=== PATIENT | male | born 1970 | race Caucasian/White ===

== ENCOUNTER 2022-09-29 17:07 | Outpatient (REF) | payer SELFPAY ==
[2022-09-29 14:39] LABS: BUN 19 mg/dL (7-18); CREATININE 0.9 mg/dL (0.70-1.30); Calcium 9.8 mg/dL (8.5-10.1); Calculated LDL 112 mg/dL (<100); Chloride 105 mmol/L (98-107); Cholesterol 178 mg/dL (<200); Glucose 107 mg/dL (74-106); HDL Cholesterol 57 mg/dL (40-60); Potassium 5.8 mmol/L (3.5-5.1); Sodium 143 mmol/L (136-145); Triglyceride 46 mg/dL (<150)
== END 2022-09-29 17:08 | disposition home or self-care (01) ==
LOC: NCHCN 17:07
PROVIDERS: Visit Provider Family Medicine
DX: Z00.00 Encounter for general adult medical examination without abnormal findings (principal)
CPT/HCPCS: 80048; 80061

== ENCOUNTER 2025-04-26 20:05 | Emergency (ER) | payer MEDICAID, SELFPAY ==
[2025-04-26 20:08] VITALS: BP 150/91; PULSE 69; RESP 18; O2SAT 99
--- NOTE | 2025-04-26 20:14 | W.ED.GENAD ---
Discharge Plan Disposition Patient Disposition: Home Discharge Details Clinical Impression: Lower back pain Primary Care Provider: Unknown,Unknown ED Provider: Rowan Castillo Home Meds and New Rx's Prescriptions: New methocarbamol 750 mg tablet 750 mg PO Q8H PRNQty: 14 0RF Rx Instructions: Take 1-2 tablets by mouth every 8 hours as needed for muscle spasm. Discharge Instructions Additional Instructions: Please call your primary care provider first thing Monday morning to schedule follow-up appointment. I recommend discussing PT for management/treatment of lower back pain I am prescribing you Robaxin, a muscle relaxer to help with muscle spasms. Please note that this may make you sleepy. Be careful when operating heavy machinery or driving. You may wish to take this medication only at night. I encourage you to use Tylenol 1000 mg combined with ibuprofen 600 mg every 6-8 hours [id number] during the day (no more than 3 times a day). Lidocaine patches, heat/ice (not to be used over lidocaine patches), and gentle massage/stretching may also be helpful. Return to emergency care if you develop fevers associated with back pain, numbness in your underwear area, change in bowel/bladder function (inability to empty bladder, loss of bladder/bowel control), leg weakness or numbness, or if you are very worried and need to be rechecked again immediately. Referrals: [facility] [Provider Group] HPI General Date/Time Provider Initiated Documentation: 04/26/25 20:06. HPI Narrative: Moises is a 54-year-old male who presents to the emergency department today for evaluation of lower back pain. 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 Ulen pain after working outside, but pain intensified overnight, disrupting sleep, and worsened upon waking today. Describes pain as a persistent cramp to mid/lower back, similar to a charley horse. First encounter with such intense pain, believes it is due to muscle strain. Pain localized in the middle of the back, worsens with bending or twisting. Denies associated fevers, chills, changes in bowel or bladder function, dysuria, hematuria, saddle anesthesia, or leg weakness/numbness. Feels generally weak due to prolonged pain. Managing pain with ibuprofen, three tablets in the morning and another three around 1530 hours, as well as lidocaine patches and heat/ice. Denies history of heart problems, HTN, HLD, diabetes, lung disease, alcohol use, tobacco use. PCP at [facility]. Related Data Home Medications ?Medication ?Instructions ?Recorded ?Confirmed methocarbamol 750 mg tablet 750 mg PO Q8H PRN #14 tabs 04/26/25 Previous Rx's ?Medication ?Instructions ?Recorded methocarbamol 750 mg tablet 750 mg PO Q8H PRN #14 tabs 04/26/25 Allergies Allergy/AdvReac Type Severity Reaction Status Date / Time No Known Allergies Allergy Unverified 04/26/25 20:13 General Stated Complaint: Nk/Back Pain GELACIO: 3 Exam Narrative Exam Narrative: General Appearance: Normal. Patient appears uncomfortable, especially with movement Vital signs: Hypertension noted, no tachycardia. Respiratory: Easy work of breathing, able to speak in full sentences Gastrointestinal: Abdomen soft, non-tender, no pulsatile masses palpated. Back, Musculoskeletal: No C-spine/T-spine/L-spine step-off/point tenderness/deformity. No obvious muscle spasm. 5/5 muscle strength upper and lower extremities. Sensation grossly intact. Achilles reflexes 2+ bilaterally. Temperature and leg color equal bilaterally. No CVA tenderness Neurological: Reflexes intact. Skin: Warm and dry, no rash. Psychiatric: Normal. Course Vital Signs Vital signs: Vital Signs Pulse 69 04/26/25 20:08 Respiratory Rate 18 04/26/25 20:08 Blood Pressure 150/91 H 04/26/25 20:08 Pulse Oximetry 99 04/26/25 20:08 Pulse 69 04/26/25 20:08 Respiratory Rate 18 04/26/25 20:08 Blood Pressure 150/91 H 04/26/25 20:08 Pulse Oximetry 99 04/26/25 20:08 Oxygen Delivery Method Room Air 04/26/25 20:08 Oxygen Flow Rate 0 04/26/25 20:08 Pain Level 5 04/26/25 20:08 Medical Decision Making Initial Assessment: 54-year-old male with back pain likely due to muscle strain from heavy physical activity. No fever, chills, changes in bowel or bladder function, or leg numbness/weakness. Pain localized to the middle of the back, worsens with bending or twisting. History and presentation was consistent with muscular back pain. No red flags in history/risk factors or physical exam concerning for trauma/fracture, AAA, spinal epidural abscess, cauda equina/compressive cord syndromes, or other serious etiology requiring diagnostic imaging or labs at this time. ED Course: - Applied lidocaine patch. - Administered Tylenol and Toradol IM, as well as Robaxin for home use (as pt is driving himself) Final Assessment: Back pain likely due to muscle strain. Administered lidocaine patch and Tylenol. Advised ibuprofen and Tylenol regimen, follow-up with primary care, and referral to physical therapy. Clinical Impression: - Muscle strain Disposition: - Discharge: Home, pain management and follow-up instructions provided. Reviewed red flags indicating need for return to emergency care. He voices agreement w/ plan of care. Prescription provided for Robaxin for home use. - Follow-Up: Contact primary care provider at [facility] on 04/28/2025. Referral to physical therapy. Patient Education: Advised on the use of ibuprofen and Tylenol together. Educated on signs to watch for requiring immediate medical attention, such as fevers, numbness, weakness in legs, numbness in the underwear area, difficulty urinating, or accidents. Patient consented to the use of JENNIFER PFSH All Active Problems (Updated 04/26/25 @ 20:38 by Rowan Gurrola) Lower back pain (Acute) Social History Smoking/Tobacco Use Status: Never Smoking risk assessment performed?: Yes Alcohol Intake: former Substance use type: does not use Housing: house
[2025-04-26] MEDS: Acetaminophen 500 MG TAB 1000 MG PO (20:39)
[2025-04-26] MEDS: Ketorolac 30 MG/ML VIAL IM (20:39)
[2025-04-26] MEDS: Lidocaine 5% Patch 1 PATCH TP (20:41)
[2025-04-26] MEDS: Methocarbamol 750 MG TAB 1500 MG PO (21:00)
[2025-04-26 21:02] VITALS: BP 130/77; PULSE 61; RESP 18; O2SAT 95
== END 2025-04-26 21:02 | disposition home or self-care (01) ==
PROVIDERS: Emergency Provider Nurse Practitioner Family; PCP Family Medicine
DX: M54.6 Pain in thoracic spine (principal); M54.50 Low back pain, unspecified
CPT/HCPCS: 96372; 99283; J1885

== ENCOUNTER 2025-06-13 13:43 | Emergency (ER) | payer MEDICAID, SELFPAY ==
[2025-06-13 13:51] VITALS: BP 130/85; PULSE 68; RESP 12; TEMP 37; O2SAT 96
--- NOTE | 2025-06-13 14:15 | DI.MRI_ITS ---
Exam(s) MR BRAIN WO EXAM: MR BRAIN WO CLINICAL HISTORY: Sudden vision loss right eye, rule out stroke TECHNIQUE: Multiplanar multisequence MRI of the brain was performed. COMPARISON: No exams were available for comparison FINDINGS: The examination is limited due to patient motion artifact. VENTRICLES AND EXTRA AXIAL SPACES: Normal in size and morphology for the patient's age. MIDLINE SHIFT: None. CEREBRAL PARENCHYMA: No focus of restricted diffusion to suggest acute infarct. No space-occupying lesion identified. HEMORRHAGE: None. BRAINSTEM/CEREBELLUM: Normal. CALVARIUM: Normal. VISUALIZED PARANASAL SINUSES/MASTOIDS:There is mucosal thickening in the maxillary sinuses, left greater than right. There is opacification of several ethmoid air cells. The mastoid air cells are clear. [place]: Normal flow void. PITUITARY GLAND: Unremarkable. OTHER FINDINGS: None. IMPRESSION: 1. No evidence of an acute infarct. 2. Mild sinus disease. DATA REPOSITORY:
--- NOTE | 2025-06-13 14:30 | DI.CT_ITS ---
Exam(s) CT BRAIN NECK CTA EXAM: CT BRAIN NECK CTA CLINICAL HISTORY: Right painless vision loss of the right eye. TECHNIQUE: Imaging Protocol: Axial CT angiography was performed with multi- slice acquisition and multi-planar and/or 3D reconstructions. CONTRAST MATERIAL: Intravenous: Omnipaque 350 contrast volume:70 mL COMPARISON: MR MR BRAIN WO from 06/13/2025 FINDINGS: CT Head W/O and W: Ventricles and Extra axial spaces: Normal in size and morphology for the patient's age. Hemorrhage: None. Cerebral parenchyma: Normal. Midline shift: None. Brainstem/Cerebellum: Normal. Pituitary gland: The pituitary gland, infundibulum and optic chiasm are unremarkable. Calvarium: Normal. Visualized Paranasal sinuses/Mastoids: There is mild mucosal thickening in the visualized paranasal sinuses. The mastoid air cells are clear. Soft Tissues: Unremarkable. Enhancement: Unremarkable. CTA Neck W: Common Carotid: Right: No dissection, occlusion or significant stenosis. Left: No dissection, occlusion or significant stenosis. External Carotid: Right: No occlusion or significant stenosis. Left: No occlusion or significant stenosis. Internal Carotid: Right: No dissection, occlusion or significant stenosis. Left: No dissection, occlusion or significant stenosis. Vertebral Artery: Right: No dissection, occlusion or significant stenosis. Left: No dissection, occlusion or significant stenosis. Lung Apices: Normal. Bones: Within normal limits for the patient's age. Soft Tissues: Normal. Thyroid gland: The left thyroid lobe is small or absent. Orbits: The orbits and retro-orbital soft tissues are unremarkable. CTA Brain W: Internal Carotid Arteries: There is no evidence of an aneurysm, occlusion or significant stenosis. Anterior Cerebral Arteries: Right: No aneurysm, occlusion or significant stenosis. Left: No aneurysm, occlusion or significant stenosis. Middle Cerebral Arteries: Right: No aneurysm, occlusion or significant stenosis. Left: No aneurysm, occlusion or significant stenosis. Posterior Cerebral Arteries: Right: No aneurysm, occlusion or significant stenosis. Left: No aneurysm, occlusion or significant stenosis. Vertebral Arteries: Right: No aneurysm, occlusion or significant stenosis. Left: No aneurysm, occlusion or significant stenosis. Basilar Artery: No aneurysm, occlusion or significant stenosis. IMPRESSION: 1. No large vessel occlusion or significant stenosis on the CT angiography of the head. 2. No acute intracranial process. 3. No occlusion or significant stenosis on the CT angiography of the neck. RADIATION DOSE DELIVERED: 2,563.52mGy.cm Total DLP DATA REPOSITORY: All CT scans at this facility are submitted to the National Radiology Data Registry (NRDR) Dose Index Registry (DIR) with the [employer] (ACR). RADIATION OPTIMIZATION: All CT scans at this facility use at least one of these dose optimization techniques: automated exposure control; mA and/or kV adjustment per patient size (includes targeted exams where dose is matched to clinical indication); or iterative reconstruction.
--- NOTE | 2025-06-13 14:35 | W.ED.GENAD ---
Discharge Plan Disposition Patient Disposition: Home Condition: Good Discharge Details Clinical Impression: Transient visual loss of right eye Primary Care Provider: Jonh Del Rio ED Provider: Nacho Dewey Home Meds and New Rx's Prescriptions: No Action No Known Home Meds Discharge Instructions Additional Instructions: At this time your workup shows no evidence of stroke on your MRI, no signs of large clot or severe vascular disease in your head or neck or eye. Your symptoms may have been secondary to a small clot or plaque that traveled to the arteries of your eye and caused a transient vision loss. There is also a chance that it could have been an atypical floater that brought about this vision change. Regardless, the assumption must be for the more severe scenario. 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 Please follow-up with your primary care provider to discuss further outpatient workup including echocardiogram, potential statin/cholesterol therapy. If you notice any worsening of your symptoms, or any new symptoms such as vomiting, diarrhea, fever, chills, shortness of breath, chest pain, numbness, weakness, or fainting , please return immediately to the emergency department for reevaluation. Please follow up with your primary care provider as soon as possible for reassessment and reevaluation. As always, it was a pleasure participating in your medical care today. Referrals: [facility] [Outside] Jonh Del Rio MD [Primary Care Provider, Medicine] [facility] General Date/Time Provider Initiated Documentation: 06/13/25 14:01. [facility] Narrative: This is a 54-year-old male with no significant past medical history who presents today for evaluation of sudden onset vision change. Patient states that he was eating lunch at about 1230 when he noticed a solid strickland box extending from the bottom of his vision and go all the way up stopping at the midway point. It took about 45 seconds to go from the bottom to the top. It then lasted 1 minute, and then resolved in about 45 seconds after that by slowly going back down. There was a minimal amount of achiness in the right eye, but otherwise no significant pain. There was no vision component whatsoever when that strickland box was present. He was not able to see through it at all. There was no black curtain coming down from his vision. He denies any speckles or thunder and lightening for visual changes. He does admit to a very mild achiness in his head, but no other complaint or component. He denies any falls or trauma. He denies ever having an experience like this before. No personal history of stroke or IN. He does have a family history of glaucoma macular degeneration and potential arterial vascular disease. Patient does not smoke. No other complaints at this time. At this time he states that his vision has completely resolved, and he feels otherwise well. Related Data Home Medications ?Medication ?Instructions ?Recorded ?Confirmed Unknown [No Known Home Meds] 06/13/25 06/13/25 Allergies Allergy/AdvReac Type Severity Reaction Status Date / Time No Known Allergies Allergy Verified 06/13/25 13:52 General Stated Complaint: EyeProblem GELACIO: 3 Exam Narrative Exam Narrative: 1.Const: Well-nourished, Well-developed, appearing stated age 2.Eyes: PERRL, no conjunctival injection, and symmetrical lids. Right eye: EOMI, PERRL, Peripheral vision intact. No nystagmus. Fundoscopic exam shows normal optic discs and normal vasculature from my perspective, there is a slight darker spot at the 7 o'clock position but no other significant abnormality. No clinical signs of septal/orbital cellulitis, no redness around the eye, no proptosis. No hyphema, no signs of trauma around the eye, no periorbital emphysema. No sluggishness of the pupil. No ophthalmoplegia. No afferent pupillary defect. Fluorescein exam is negative for corneal abrasion, negative Marry sign. Visual acuity as documented in chart. Intraocular pressure registers at 16 on multiple measurements. 3.ENT: Atraumatic external nose and ears. Moist MM. Neck: Symmetric, trachea midline, No thyromegaly. 4.CVS: +S1/S2, Peripheral pulses 2+ and equal in all extremities. Brisk capillary refill in all extremities. 5.RESP: Unlabored respiratory effort. Clear to auscultation bilaterally. No wheezes rales or rhonchi 6.GI: Soft, Nontender/Nondistended, No hepatosplenomegaly. No guarding or rebound. 7.MSK: Normocephalic/Atraumatic, Extremities w/o deformity or ttp No cyanosis or clubbing, Normal movement of all extremities 8.Skin: Warm, Dry. No rashes or lesions. 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 Sensation grossly intact, no focal neurologic deficits. All 6 cardinal planes of vision are fully intact. No evidence of rotatory or vertical nystagmus. The patient demonstrated a normal [id number]-zaytpt, good dexterity. There was no evidence of dysdiadochokinesia. Patient was able to ambulate without difficulty. There was no wide-based gait. Romberg testing was normal. [id number] testing was normal. Sensation was intact bilaterally as well as muscle strength bilaterally for all extremities. Patient was able to verbalize butter cup with no slurring, or miss pronunciation. 10.Psych: (AAO) x3. Appropriate mood and affect Course Vital Signs Vital signs: Vital Signs Temperature 37.0 C 06/13/25 13:51 Pulse 68 06/13/25 13:51 Respiratory Rate 12 06/13/25 13:51 Blood Pressure 130/85 06/13/25 13:51 Pulse Oximetry 96 06/13/25 13:51 Temperature 37.0 C 06/13/25 13:51 Temperature Source Oral 06/13/25 13:51 Pulse 68 06/13/25 13:51 Respiratory Rate 12 06/13/25 13:51 Blood Pressure 130/85 06/13/25 13:51 Blood Pressure Position Sitting 06/13/25 13:51 Pulse Oximetry 96 06/13/25 13:51 Oxygen Delivery Method Room Air 06/13/25 13:51 Oxygen Flow Rate 0 06/13/25 13:51 Medical Decision Making This is a 54-year-old male with no significant past medical history who presents today for evaluation of sudden onset vision change. Patient states that he was eating lunch at about 1230 when he noticed a solid strickland box extending from the bottom of his vision and go all the way up stopping at the midway point. It took about 45 seconds to go from the bottom to the top. It then lasted 1 minute, and then resolved in about 45 seconds after that by slowly going back down. There was a minimal amount of achiness in the right eye, but otherwise no significant pain. There was no vision component whatsoever when that strickland box was present. He was not able to see through it at all. There was no black curtain coming down from his vision. He denies any speckles or thunder and lightening for visual changes. He does admit to a very mild achiness in his head, but no other complaint or component. He denies any falls or trauma. He denies ever having an experience like this before. No personal history of stroke or IN. He does have a family history of glaucoma macular degeneration and potential arterial vascular disease. Patient does not smoke. No other complaints at this time. At this time he states that his vision has completely resolved, and he feels otherwise well. Physical exam of the eye demonstrates normal ophthalmic pressures, no evidence of acute angle-closure glaucoma. Patient has normal visual puente, normal vision. No evidence of visual deficit. No evidence to suggest blood and thunder, or extremely pale component of the retina macula. Her chief complaint no evidence of other neurologic deficit on exam. Differential includes amaurosis fugax, less likely is retinal vein occlusion. Differential also includes stroke versus TIA. Symptoms have resolved, we would certainly defer to TIA over stroke. There is no indication for tPA or TNK at this time. After discussion with radiology about next steps for imaging we will get an MRI to rule out stroke, and then CTA to evaluate for vascular component or atherosclerotic disease. Will monitor closely and reassess. MS is unlikely given exam. No trauma or evidence to suggest globe rupture. No evidence of blood and thunder or retinal abnormality to suggest retinal tear or detachment. Additionally, giant cell arteritis is on the differential and we will get inflammatory markers 4 PM MRI shows no evidence of acute infarct or other abnormality. Patient's laboratory workup has returned with no white count, ESR is normal, CRP is normal. Electrolytes normal. He has no known history of tobacco use, severe hypertension or significant hypercholesterolemia. Low risk for severe atherosclerotic disease. Patient's vision remains intact. Limited bedside ultrasound was performed and shows no evidence of retinal detachment. Still pending CT scan at this time. 4:[address] scan results show no evidence of severe disease, clot, atherosclerotic disease or other abnormality. Symptoms remain resolved. Differential still includes amaurosis fugax. Symptoms appear less likely for retinal vein occlusion. No evidence to suggest stroke. Patient is low risk for atherosclerotic disease though with no history of active tobacco use, coronary artery disease, severe atherosclerotic disease on imaging, hypertension or high cholesterol. We will recommend daily 81 mg aspirin, and close follow-up with his primary care provider for outpatient nonemergent echo, as well as further discussion of antihypercholesterolemia medications as needed or indicated. Discussed red flags for which to return. Will place referral with [facility]. I have extensively reviewed the treatment plan and discharge instructions with the patient. I have addressed all patient concerns at this time. The patient was made aware of what symptoms to monitor for that would warrant a return to the emergency department. Discussed the plan with the patient, they demonstrate verbal understanding and agreement with our assessment and plan at this time. The documentation in this chart was dictated using Speek dictation software. Please excuse any dictation errors. FINDINGS: The examination is limited due to patient motion artifact. VENTRICLES AND EXTRA AXIAL SPACES: Normal in size and morphology for the patient's age. MIDLINE SHIFT: None. CEREBRAL PARENCHYMA: No focus of restricted diffusion to suggest acute infarct. No space-occupying lesion identified. HEMORRHAGE: None. BRAINSTEM/CEREBELLUM: Normal. CALVARIUM: Normal. VISUALIZED PARANASAL SINUSES/MASTOIDS:There is mucosal thickening in the maxillary sinuses, left greater than right. There is opacification of several ethmoid air cells. The mastoid air cells are clear. [place]: Normal flow void. PITUITARY GLAND: Unremarkable. OTHER FINDINGS: None. IMPRESSION: 1. No evidence of an acute infarct. 2. Mild sinus disease. CT Head W/O and W: Ventricles and Extra axial spaces: Normal in size and morphology for the patient's age. Hemorrhage: None. Cerebral parenchyma: Normal. Midline shift: None. Brainstem/Cerebellum: Normal. Pituitary gland: The pituitary gland, infundibulum and optic chiasm are unremarkable. Calvarium: Normal. Visualized Paranasal sinuses/Mastoids: There is mild mucosal thickening in the visualized paranasal sinuses. The mastoid air cells are clear. Soft Tissues: Unremarkable. Enhancement: Unremarkable. CTA Neck W: Common Carotid: Right: No dissection, occlusion or significant stenosis. Left: No dissection, occlusion or significant stenosis. External Carotid: Right: No occlusion or significant stenosis. Left: No occlusion or significant stenosis. Internal Carotid: Right: No dissection, occlusion or significant stenosis. Left: No dissection, occlusion or significant stenosis. Vertebral Artery: Right: No dissection, occlusion or significant stenosis. Left: No dissection, occlusion or significant stenosis. Lung Apices: Normal. Bones: Within normal limits for the patient's age. Soft Tissues: Normal. Thyroid gland: The left thyroid lobe is small or absent. Orbits: The orbits and retro-orbital soft tissues are unremarkable. CTA Brain W: Internal Carotid Arteries: There is no evidence of an aneurysm, occlusion or significant stenosis. Anterior Cerebral Arteries: Right: No aneurysm, occlusion or significant stenosis. Left: No aneurysm, occlusion or significant stenosis. Middle Cerebral Arteries: Right: No aneurysm, occlusion or significant stenosis. Left: No aneurysm, occlusion or significant stenosis. Posterior Cerebral Arteries: Right: No aneurysm, occlusion or significant stenosis. Left: No aneurysm, occlusion or significant stenosis. Vertebral Arteries: Right: No aneurysm, occlusion or significant stenosis. Left: No aneurysm, occlusion or significant stenosis. Basilar Artery: No aneurysm, occlusion or significant stenosis. IMPRESSION: 1. No large vessel occlusion or significant stenosis on the CT angiography of the head. 2. No acute intracranial process. 3. No occlusion or significant stenosis on the CT angiography of the neck. PFSH All Active Problems (Updated 06/13/25 @ 16:43 by Nacho Dewey DO) Transient visual loss of right eye (Acute) Social History Smoking/Tobacco Use Status: Never Smoking risk assessment performed?: Yes Alcohol Intake: former Substance use type: does not use Housing: house POCUS Exam (ED) Limited Ocular Exam DATE OF EXAM: 06/13/25 TIME OF EXAM: 16:53 PROVIDER THAT PERFORMED THE STUDY: Nacho Dewey IS THIS A REPEAT EXAM DURING THIS ENCOUNTER: No OCULAR EXAM: Right eye INDICATION FOR RIGHT EYE EXAM: Decreased vision VISUALIZED STRUCTURES: Right optic nerve and Right lens. PERTINENT FINDINGS/IMPRESSION OF THE RIGHT EYE: No apparent abnomalities: Exam complete
[2025-06-13 15:17] LABS: Abs Immature Grans 0.01 10^3/uL (0.0-0.06); ESR 8 mm/hr (0-20); HCT 43.8 % (40.0-50.0); HGB 15.0 g/dL (13.5-17.5); Immature Grans % 0.1 %; MCH 29.1 pg (27.0-33.0); MCHC 34.2 % (32.0-36.0); MCV 85 fL (80-95); MPV 11.3 fL (8.0-11.0); Platelet Count 210 10^3/uL (130-400); RBC 5.15 10^6/uL (4.36-5.78); RDW 12.5 % (11.8-14.1); RDW-SD 38.8 fL; WBC 6.71 10^3/uL (4.4-10.8)
[2025-06-13 15:29] LABS: INR 1.0 (0.9-1.1); PTT Activated 24.8 sec (20.6-30.2); Prothrombin Time 9.8 sec (9.1-11.1)
[2025-06-13 15:34] LABS: ALT 23 U/L (16-63); AST 13 U/L (15-37); Albumin 4.1 g/dL (3.4-5.0); Alkaline Phosphatase 61 U/L (46-116); Anion Gap 6.9 mmol/L (3-11); BUN 20 mg/dL (7-18); Bilirubin, Total 0.3 mg/dL (0.2-1.0); CO2 31.1 mmol/L (21.0-32.0); Calcium 9.5 mg/dL (8.5-10.1); Chloride 105 mmol/L (98-107); Estimated GFR 90.00 (mL/min/1.73m2); Glucose 95 mg/dL (74-106); Potassium 4.2 mmol/L (3.5-5.1); Sodium 143 mmol/L (136-145); Total Protein 7.8 g/dL (6.4-8.2)
[2025-06-13] MEDS: Normal Saline - Diluent 50 ML VIAL IJ (15:43)
[2025-06-13] MEDS: Omnipaque 350 MG/ML 100 ML BTL IJ (15:47)
[2025-06-13 15:52] LABS: C-Reactive Protein < 0.50 mg/dL (<or=0.5)
[2025-06-13 16:01] VITALS: BP 124/65; PULSE 72; RESP 16; TEMP 36.8; O2SAT 96
[2025-06-13 17:03] VITALS: BP 127/78; PULSE 66; RESP 18; O2SAT 98
== END 2025-06-13 17:07 | disposition home or self-care (01) ==
PROVIDERS: Emergency Provider Student in an Organized Health Care Education/Training Program; PCP Family Medicine
DX: H53.121 Transient visual loss, right eye (principal)
CPT/HCPCS: 99285; 99284; 70496; 70498; 76512; 80053; 85652; 70551; 85025; 85610; 85730; 86140; J3490

== ENCOUNTER 2025-08-11 03:23 | Outpatient (CLI) | payer MEDICAID, SELFPAY ==
--- NOTE | 2025-08-11 | DI.US_ITS ---
Exam(s) US CAROTID EXAM: US CAROTID CLINICAL HISTORY: TRANSIENT VISION DISTURBANCE RT, H53.9. TECHNIQUE: Ultrasound carotids performed using grayscale, color-flow, and spectral Doppler imaging. COMPARISON: No exams were available for comparison FINDINGS: RIGHT CAROTID ARTERY: Plaque: None. Velocity elevation: None. LEFT CAROTID ARTERY: Plaque: None. Velocity elevation: None. VERTEBRAL ARTERIES: Antegrade flow. Measurements: R Bulb: 63.2cm/s PS / 15.3cm/s ED R CCA: 70.4cm/s PS / 22.4cm/s ED R ECA: 100.1cm/s PS / 22.5cm/s ED R ICA Prox: 66.7cm/s PS / 31.9cm/s ED R ICA Mid: 57.2cm/s PS / 27.5cm/s ED R ICA Distal: 61.5cm/s PS /27.5cm/s ED R Vert: 50.5cm/s PS / 18.2cm/s ED R SVR: 0.9 R DVR: 1.4 L Bulb: 78.1cm/s PS / 22.3cm/s ED L CCA: 77.3cm/s PS / 27.5cm/s ED L ECA: 83.4cm/s PS / 28.8cm/s ED L ICA Prox: 78.3cm/s PS / 30.2cm/s ED L ICA Mid: 83.4cm/s PS / 34.2cm/s ED L ICA Distal: 64.2cm/s PS / 26.6cm/s ED L Vert: 47.1cm/s PS / 20.8cm/s ED L SVR: 1.1 L DVR: 1.2 IMPRESSION: No evidence for hemodynamically significant carotid stenosis. Criteria for Carotid Stenosis: Normal: ICA PSV <125 cm/s no plaque or intimal thickening is visible. <50% stenosis: ICA PSV <125 cm/s and plaque or intimal thickening is visible. 50-69% stenosis: ICA PSV is 125-250 cm/s and plaque is visible. >70% stenosis to near occlusion: ICA PSV >250 cm/s with visible plaque and luminal narrowing. DATA REPOSITORY:
== END 2025-08-11 03:43 ==
LOC: DI 03:23
PROVIDERS: PCP Family Medicine; Visit Provider Family Medicine
DX: H53.9 Unspecified visual disturbance (principal)
CPT/HCPCS: 93880